=== PATIENT | female | born 1970 | race Caucasian/White ===

== ENCOUNTER 2019-03-01 13:22 | Outpatient (CLI) | payer OTHER ==
--- NOTE | 2019-03-01 14:08 | RAD ---
RIGHT FOOT 3 VIEWS: HISTORY: Foot pain. FINDINGS: Tarsals unremarkable. Metatarsals and phalanges appear intact. No osseous abnormality identified. IMPRESSION: No acute abnormality identified. POS: C
== END 2019-03-01 13:23 | disposition home or self-care (01) ==
LOC: SCSRAD 13:22
PROVIDERS: ATTEND Family Medicine
DX: M79.671 Pain in right foot (principal)